=== PATIENT | female | born 1965 | race Caucasian/White ===

== ENCOUNTER 2017-01-07 11:40 | Outpatient (CLI) | payer OTHER ==
[2017-01-07 16:52] LABS: ALT (SGPT) 26 U/L (8-55); AST (SGOT) 17 U/L (5-34); Albumin 4.5 g/dL (3.5-5.0); Alkaline Phosphatase 73 U/L (40-150); Anion Gap 12 mmol/L (10-20); BUN (Urea Nitrogen) 12 mg/dL (9.8-20.1); Bilirubin, Total 1.1 mg/dL (0.2-1.2); Calc. Creatinine Clearance 0 mL/min (70-130); Calcium 9.4 mg/dL (7.8-10.44); Carbon Dioxide 29 mmol/L (22-29); Cardiac Risk 2.9 (Less than 4.5); Chloride 104 mmol/L (98-107); Cholesterol 186 mg/dl (< 200 Desired); Estimated GFR-MDRD 84; Globulin 2.9 g/dL (2.4-3.5); Glucose 87 mg/dL (70-105); HDL Cholesterol 64 mg/dL (>60 Neg Risk); LDL Cholesterol, Calculated 110 mg/dL; Potassium 4.8 mmol/L (3.5-5.1); Protein, Total 7.4 g/dL (6.0-8.3); Sodium 140 mmol/L (136-145); Triglycerides 59 mg/dL (Less than 150)
== END 2017-01-07 11:41 | disposition home or self-care (01) ==
LOC: LABLEX 11:40
PROVIDERS: ATTEND Nurse Practitioner
DX: I10 Essential (primary) hypertension (principal); G43.829 Menstrual migraine, not intractable, without status migrainosus
CPT/HCPCS: 80053; 80061; 82306

== ENCOUNTER 2018-04-20 20:10 | Emergency (ER) | payer OTHER ==
[2018-04-20 20:41] LABS: #Basophils 0.1 thou/uL (0.0-0.2); #Eosinphils 0.3 thou/uL (0.0-0.7); #Lymphocytes 3.8 thou/uL (1.20-3.40); #Monocytes 0.9 thou/uL (0.11-0.59); #Neutrophils 5.1 thou/uL (1.40-6.50); %Basophils 0.6 % (0.0-1.0); %Eosinophils 3.1 % (0.0-10.0); %Lymphocytes 37.2 % (21.0-51.0); %Monocytes 8.9 % (0.0-10.0); %Neutrophils 50.2 % (42.0-75.0); Hemoglobin 15.7 g/dL (12.0-16.0); Mean Corpuscular HGB CONC 35.9 g/dL (32.0-36.0); Mean Corpuscular Hemoglobin 30.5 pg (27.0-31.0); Platelet Count 276 thou/uL (130-400); Red Blood Cell (RBC) Count 5.16 mill/uL (4.20-5.40); White Blood Cell (WBC) Count 10.1 thou/uL (4.8-10.8)
[2018-04-20 20:54] LABS: ALT (SGPT) 21 U/L (8-55); AST (SGOT) 13 U/L (5-34); Albumin 4.2 g/dL (3.5-5.0); Alkaline Phosphatase 82 U/L (40-150); Anion Gap 14 mmol/L (10-20); BUN (Urea Nitrogen) 14 mg/dL (9.8-20.1); Bilirubin, Total 0.6 mg/dL (0.2-1.2); CK (CPK) 70 U/L (29-168); Calc. Creatinine Clearance 0 mL/min (70-130); Calcium 9.7 mg/dL (7.8-10.44); Carbon Dioxide 25 mmol/L (22-29); Chloride 108 mmol/L (98-107); Estimated GFR-MDRD 82; Globulin 2.3 g/dL (2.4-3.5); Glucose 83 mg/dL (70-105); Potassium 3.8 mmol/L (3.5-5.1); Protein, Total 6.5 g/dL (6.0-8.3); Sodium 143 mmol/L (136-145)
[2018-04-20 20:55] LABS: CKMB 0.9 ng/mL (0-6.6)
[2018-04-20] MEDS ORDERED: Ondansetron PF 4 MG/2 ML Vial ONE (21:04)
[2018-04-20 21:40] LABS: Bilirubin Negative (Negative); Blood, Urine Negative (Negative); Clarity Clear (Clear); Glucose, Urine (Dipstick) Negative (Negative); Leukocyte Trace (Negative); Nitrite Negative (Negative); Protein, Urine (Dipstick) Negative (Neg-Trace); Specific Gravity, Urine 1.015 (1.005-1.030); Urobilinogen 0.2 mg/dL (0.2-1.0)
[2018-04-20 21:48] LABS: Bacteria/HPF 1+ HPF (None Seen); RBC/HPF 0-3 HPF (0-3); Squamous Epithelial 0-3 HPF (0-3); WBC/HPF 0-3 HPF (0-3)
== END 2018-04-20 22:11 | disposition home or self-care (01) ==
LOC: BURERS 20:10
DX: R55 Syncope and collapse (principal); F41.9 Anxiety disorder, unspecified; F32.9 Major depressive disorder, single episode, unspecified
CPT/HCPCS: 80053; 81003; 81015; 82550; 82553; 84484; 85025; 93005; 96361; 96374; J2405

== ENCOUNTER 2019-09-04 11:34 | Outpatient (CLI) | payer OTHER ==
--- NOTE | 2019-09-04 16:26 | RAD ---
RIGHT ANKLE 3 VIEWS: DATE: 09/04/2019. FINDINGS: Three views show no major acute fracture, though there is soft tissue swelling around the joint. The re is a linear bony density seen along the fibular side of the talus. This could be a small cortical avulsion, either recent or old. The articular surfaces of the tibiotalar joint appear normal. The calcaneal spur was seen. IMPRESSION: Soft tissue swelling. Possible cortical avulsion from the lateral side of the talus. CODE T POS: HOME
== END 2019-09-04 11:35 | disposition home or self-care (01) ==
LOC: BURRAD 11:34
PROVIDERS: ATTEND Family Medicine
DX: S99.911A Unspecified injury of right ankle, initial encounter (principal); M79.89 Other specified soft tissue disorders

== ENCOUNTER 2019-11-17 09:02 | Emergency (ER) | payer OTHER ==
[2019-11-17 10:15] LABS: #Eosinphils 0.6 thou/uL (0.0-0.7); #Lymphocytes 2.5 thou/uL (1.20-3.40); #Monocytes 0.5 thou/uL (0.11-0.59); #Neutrophils 4.1 thou/uL (1.40-6.50); %Basophils 0.6 % (0.0-1.0); %Eosinophils 7.3 % (0.0-10.0); %Lymphocytes 32.2 % (21.0-51.0); %Monocytes 6.5 % (0.0-10.0); %Neutrophils 53.4 % (42.0-75.0); Hemoglobin 15.3 g/dL (12.0-16.0); Mean Corpuscular HGB CONC 31.5 g/dL (32.0-36.0); Mean Corpuscular Volume 95.2 fL (78.0-98.0); Mean Platelet Volume 7.7 fL (7.4-10.4); Platelet Count 226 thou/uL (130-400); RBC Distribution Width 12.4 % (11.5-14.5); Red Blood Cell (RBC) Count 5.09 mill/uL (4.20-5.40); White Blood Cell (WBC) Count 7.7 thou/uL (4.8-10.8)
[2019-11-17 10:20] LABS: Prothrombin Time 12.9 sec (12.0-14.7)
[2019-11-17 10:32] LABS: AST (SGOT) 20 U/L (5-34); Albumin 4.3 g/dL (3.5-5.0); Alkaline Phosphatase 88 U/L (40-110); Anion Gap 16 mmol/L (10-20); BUN (Urea Nitrogen) 17 mg/dL (9.8-20.1); Bilirubin, Total 0.4 mg/dL (0.2-1.2); Calc. Creatinine Clearance 0 mL/min (70-130); Calcium 9.8 mg/dL (7.8-10.44); Carbon Dioxide 20 mmol/L (22-29); Chloride 107 mmol/L (98-107); Estimated GFR-MDRD 90; Glucose 94 mg/dL (70-105); Potassium 4.2 mmol/L (3.5-5.1); Protein, Total 7.3 g/dL (6.0-8.3); Sodium 139 mmol/L (136-145)
[2019-11-17 10:53] LABS: ALT (SGPT) 27 U/L (8-55)
--- NOTE | 2019-11-17 19:18 | RAD ---
PORTABLE CHEST: 11/17/19 An AP portable film at 0949 is compared with the 08/24/19 study. The heart is normal in size and the lungs are clear. No acute infiltrate or effusion. There is no vas cular congestion or edema. The mediastinum appears normal. IMPRESSION: No acute thoracic finding. POS: HOME
--- NOTE | 2019-11-17 20:09 | CT ---
CT OF THE BRAIN WITHOUT CONTRAST: 11/17/19 There is a small focal high density area in the anterior right frontal lobe that probably represents a small parenchymal hemorrhage. No extra-axial hematoma was seen. The ventricles are normal in size with no shift. There is no sign of mass or acute stroke. The skull appears intact. There are abundant findings of dickson sinusitis including both maxillary sinus es (especially the left), the ethmoid sinuses and sphenoid sinus. The mastoid air cells are mostly cl ear. There may be a few in the tip of the right mastoid bone that are slightly opaque. IMPRESSION: 1. Small less than 1 cm parenchymal hemorrhage in the anterior right frontal lobe. 2. Pansinusitis. POS: HOME
== END 2019-11-17 10:53 | disposition short-term general hospital (02) ==
LOC: BURERS 09:02
DX: I61.9 Nontraumatic intracerebral hemorrhage, unspecified (principal); I10 Essential (primary) hypertension; F41.9 Anxiety disorder, unspecified; F32.9 Major depressive disorder, single episode, unspecified; Z79.899 Other long term (current) drug therapy
CPT/HCPCS: 70450; 71045; 80053; 85025; 85610

== ENCOUNTER 2019-12-07 00:16 | Outpatient (CLI) | payer OTHER ==
[2019-12-07 06:16] LABS: #Eosinphils 0.5 thou/uL (0.0-0.7); #Lymphocytes 2.7 thou/uL (1.20-3.40); #Monocytes 0.6 thou/uL (0.11-0.59); %Basophils 0.5 % (0.0-1.0); %Eosinophils 6.4 % (0.0-10.0); %Lymphocytes 35.1 % (21.0-51.0); %Neutrophils 50.9 % (42.0-75.0); Hemoglobin 14.3 g/dL (12.0-16.0); Mean Corpuscular HGB CONC 31.2 g/dL (32.0-36.0); Mean Corpuscular Hemoglobin 29.1 pg (27.0-31.0); Mean Corpuscular Volume 93.4 fL (78.0-98.0); Mean Platelet Volume 7.7 fL (7.4-10.4); Platelet Count 242 thou/uL (130-400); RBC Distribution Width 11.8 % (11.5-14.5); White Blood Cell (WBC) Count 7.8 thou/uL (4.8-10.8)
[2019-12-07 06:37] LABS: ALT (SGPT) 20 U/L (8-55); AST (SGOT) 14 U/L (5-34); Albumin 4.3 g/dL (3.5-5.0); Alkaline Phosphatase 91 U/L (40-110); Anion Gap 13 mmol/L (10-20); BUN (Urea Nitrogen) 13 mg/dL (9.8-20.1); Bilirubin, Total 0.7 mg/dL (0.2-1.2); Calc. Creatinine Clearance 0 mL/min (70-130); Calcium 9.5 mg/dL (7.8-10.44); Carbon Dioxide 26 mmol/L (22-29); Chloride 106 mmol/L (98-107); Cholesterol 196 mg/dl (< 200 Desired); Estimated GFR-MDRD Greater than 90; Globulin 2.3 g/dL (2.4-3.5); Glucose 84 mg/dL (70-105); HDL Cholesterol 65 mg/dL (>60 Neg Risk); LDL Cholesterol, Calculated 119 mg/dL; Potassium 4.3 mmol/L (3.5-5.1); Protein, Total 6.6 g/dL (6.0-8.3); Sodium 141 mmol/L (136-145); Triglycerides 62 mg/dL (Less than 150)
[2019-12-07 06:51] LABS: Thyroid Stimulating Hormone 1.1724 uIU/mL (0.35-4.94)
--- NOTE | 2019-12-07 09:19 | CT ---
CT OF THE BRAIN WITHOUT CONTRAST: Date: 12/07/2019 INDICATION: 54-year-old female with history of subarachnoid hemorrhage, status post fall 3 weeks ago. COMPARISON: CT of brain dated 11/18/2019 and 11/17/2019. FINDINGS: The intraparenchymal contusion involving the anterior and superior aspect of the right frontal lobe o n image 16 of series 2 measures 8.2 mm, previously measuring 8.5 mm. This is slightly smaller than th e prior examination. No new acute hemorrhage, hydrocephalus, or midline shift is noted. There is some improvement in the pansinusitis seen on the prior examination. Residual air fluid level seen within the sphenoid sinus and multiple ethmoid air cells, however. Mastoid air cells are clear. IMPRESSION: 1. Slight interval decrease in size of the right frontal lobe parenchymal contusion. 2. Improving pansinusitis. POS: BH
[2019-12-07 12:04] LABS: Free T4 (Free Thyroxine) 1.09 ng/dL (0.70-1.48)
== END 2019-12-07 00:17 | disposition home or self-care (01) ==
LOC: BURCT 00:16
PROVIDERS: ATTEND Neurological Surgery
DX: Z00.00 Encounter for general adult medical examination without abnormal findings (principal); Z13.29 Encounter for screening for other suspected endocrine disorder; I60.9 Nontraumatic subarachnoid hemorrhage, unspecified; J32.4 Chronic pansinusitis; S06.2X0A Diffuse traumatic brain injury without loss of consciousness, initial encounter
CPT/HCPCS: 36415; 70450; 80053; 80061; 84439; 84443; 85025

== ENCOUNTER 2021-01-13 19:15 | Outpatient (CLI) | payer OTHER ==
[2021-01-13 20:18] LABS: SARS-CoV-2 NAA Rapid Test Not Detected (NotDetected)
== END 2021-01-13 19:16 | disposition home or self-care (01) ==
LOC: BURLAB 19:15
PROVIDERS: ATTEND Family Medicine
DX: Z20.822 Contact with and (suspected) exposure to COVID-19 (principal)
CPT/HCPCS: U0002

== ENCOUNTER 2021-02-14 16:09 | Emergency (ER) | payer OTHER ==
[2021-02-14] MEDS ORDERED: Lidocaine 1% PF 5 ML VIAL ONE (16:20)
[2021-02-14] MEDS ORDERED: HYDROcodone/Acetaminophen 10/325 mg Tablet ONE (16:33)
[2021-02-14] MEDS ORDERED: Ibuprofen 800 MG TAB ONE (16:33)
== END 2021-02-14 17:10 | disposition home or self-care (01) ==
LOC: BURERS 16:09
DX: S93.115A Dislocation of interphalangeal joint of left lesser toe(s), initial encounter (principal); S70.02XA Contusion of left hip, initial encounter; W19.XXXA Unspecified fall, initial encounter
CPT/HCPCS: 28660

== ENCOUNTER 2021-05-07 22:10 | Outpatient (CLI) | payer OTHER ==
[2021-05-07 22:49] LABS: SARS-CoV-2 NAA Rapid Test Not Detected (NotDetected)
== END 2021-05-07 22:11 | disposition home or self-care (01) ==
LOC: BURLAB 22:10
PROVIDERS: ATTEND Family Medicine
DX: Z20.822 Contact with and (suspected) exposure to COVID-19 (principal)
CPT/HCPCS: U0002

== ENCOUNTER 2021-07-21 16:53 | Outpatient (CLI) | payer BC | END 2021-07-21 16:54 | disposition home or self-care (01) | LOC: BURRAD 16:53 | PROVIDERS: ATTEND Family Medicine | DX: S99.912A Unspecified injury of left ankle, initial encounter (principal); S99.922A Unspecified injury of left foot, initial encounter ==

== ENCOUNTER 2024-11-24 20:04 | Emergency (ER) | payer OTHER | END 2024-11-24 21:00 | disposition home or self-care (01) | LOC: BURERS 20:04 | DX: M20.011 Mallet finger of right finger(s) (principal); I10 Essential (primary) hypertension; W23.1XXA Caught, crushed, jammed, or pinched between stationary objects, initial encounter | CPT/HCPCS: 99283 ==